=== PATIENT | female | born 1980 | race Caucasian/White ===

== ENCOUNTER 2024-10-23 14:11 | Outpatient (CLI) | payer OTHER, SELFPAY ==
--- NOTE | ~2024-10-23 | MM_ITS ---
EXAMINATION: MM screening samuel BI w john HISTORY: Screening TECHNIQUE: Craniocaudal and mediolateral oblique 3-D tomosynthesis images were obtained and synthetic 2-D images were generated. CAD analysis was submitted and interpreted. COMPARISON: Comparison to multiple prior studies sequentially, with oldest reviewed study dated 09/07. BREAST PARENCHYMAL COMPOSITION: Dense: The breasts are extremely dense, which lowers the sensitivity of mammography. FINDINGS: There is no evidence of suspicious mass, calcification, or architectural distortion to sugg est malignancy in either breast. There has been no suspicious interval change. IMPRESSION: 1. No mammographic evidence of malignancy. 2. Recommend routine screening mammography in one year. BI-RADS Category 1: Negative Reviewed, dictated and finalized at location A. RAL FOODS CLERK
== END 2024-10-23 14:12 | disposition home or self-care (01) ==
LOC: ANHIMG 14:13
PROVIDERS: PCP Internal Medicine; Visit Provider Nurse Practitioner Family
DX: Z12.31 Encounter for screening mammogram for malignant neoplasm of breast (principal)
CPT/HCPCS: 77063; 77067

== ENCOUNTER 2025-03-02 00:46 | Day surgery (SDC) | payer OTHER, SELFPAY ==
[2025-02-19 12:38] VITALS: BMI 26.6
--- OUTSIDE RECORDS SUMMARY | 2025-03-02 00:48 | XMS_ITS | Clinical Summary ---
Author Organization [facility] Address [address], [address] [address] Phone Care Team Providers Care Magnetometer Operator Name Role Phone Gab Go MD Primary Care Provider Ivana Barker MD Unavailable Otis August DO Unavailable [phone] Allergies No known active allergies Medications ibuprofen (MOTRIN) 400 MG Tablet Take 400 mg by mouth every 8 hours as needed. Active omeprazole (PRILOSEC) 40 MG CAPSULE DELAYED RELEASE TAKE ONE CAPSULE BY MOUTH EVERY DAY 30 Cap 1 09/25/2017 Active Family History Medical History Relation Name Comments Breast Cancer Paternal Grandmother Relation Name Status Comments Paternal Grandmother Social History Tobacco Use Types Packs/Day Years Used Date Smoking Tobacco: Every Day Cigarettes 2 25 Smokeless Tobacco: Never Tobacco Cessation:Ready to Q uit: No Alcohol Use Standard Drinks/Week Comments Yes 0 (1 standard drink = 0.6 oz pur e alcohol) 1 - 2 drinks per month Comments Unknown Sex and Gender Information Value Date Recorded Sex Assigned at Not on file Legal Sex Female 3:01 PM CDT Gender Identity Not on file Sexual Orientation Not on file Plan of Treatment Health Maintenance Due Date Last Done Comments Hepatitis C Virus (HCV) Screening 1978 TdaP Immunization 1978 Hepatitis B Immunization (1 of 3 - 19+ 3-dose series) 1997 Pap Smear 1999 Cervical Cancer Screening (CCS) 2008 HPV/Cotest 2008 Discussion re Starting/Frequ ency of Mammograms 2018 Colonoscopy 2023 Colorectal Cancer Screening 2023 Influenza Immunization (#1) 2024 SARS-COV-2 Immunization ( - season) 2024 Respiratory Syncytial Virus (RSV) Immunization (Adult) (1 - 1-dose 75+ series) 2053 Meningococcal Immunization (ACWY) Aged Out No longer eligible based on patient's age to complete this topic Pneumococcal Immunization Combined Aged Out No longer eligible based on patient's age to complete this topic Rotavirus Immunization Aged Out No lo nger eligible based on patient's age to complete this topic Insurance [address] Care Teams Magnetometer Operator Relationship Specialty Start Date End Date Gab Go MD PCP - General Internal Medicine 08/03/16 Ivana Barker MD [address] [place] [id number] Obstetrics & Gynecology 08/03/16 Otis August DO [address] [place] [id number] Gastroenterology 11/06/16
[2025-03-02 09:42] VITALS: BP 117/76; PULSE 94; RESP 16; TEMP 36.1; O2SAT 99; BMI 29.0
[2025-03-02] MEDS: LACTATED RINGERS 1,000 ML 150 ML IV CONT (09:52)
--- NOTE | 2025-03-02 10:00 | WPDANESEPPF ---
Anes - Initial Pre Proc Eval Procedure: Operation Date: 03/02/25 11:00 Proposed Procedures p Screening Colonoscopy - Ronnell Dolan MD Date/Time: 03/02/25 10:00 Surgeon: Ronnell Dolan MD Pre Op Diagnosis: neoplasm screening Patient Data Age: 44 Gender: F Height: 1.55 m Weight: 69.6 kg Last Vital Signs Temp 97 F L 03/02/25 09:42 Pulse 94 03/02/25 09:42 Resp 16 03/02/25 09:42 BP 117/76 03/02/25 09:42 Pulse Ox 99 03/02/25 09:42 O2 Del Method Room Air 03/02/25 09:42 Allergies Allergy/AdvReac Type Severity Reaction Status Date / Time No Known Allergies Allergy Verified 03/02/25 09:41 Home Medications ?Medication ?Instructions ?Recorded ?Confirmed ?Type omeprazole 20 mg tablet,delayed 20 mg PO DAILY 02/19/25 03/02/25 History release Patient hx anesthesia problems: none Family hx anesthesia problems: none Results Review: All pre-operative results and documents have been reviewed as part of the pre-operative evaluation. [facility] Past Medical History Medical History (Updated 06/11/24 @ 14:30 by Shaila Leonardo APRN) COPD (chronic obstructive pulmonary disease) Stomach ulcer Surgical History Surgical History H/O endoscopy H/O tubal ligation H/O: Family History Family History Mother Pancreatic cancer Father Alcoholic Grandparent Cerebrovascular accident Breast cancer Heart disease Social History Social History (Updated 06/11/24 @ 13:44 by Julianne Ontiveros CMA) Smoking packs per day: 2 Smoking cigarettes per day: 40.0 Smoking status: Current every day smoker Tobacco type: cigarettes Alcohol intake: current Alcohol use details: rare Substance use: current Substance use type: marijuana Other substance usage details: daily Living arrangements: with family Spiritual care concerns: No Anes - Eval Final PreProcedure Day of Procedure 03/02/25 10:00 Patient weight: normal Heart: regular rate and rhythm Lungs: clear to auscultation Airway: Mallampati scale class II Neurological: alert and oriented Last oral intake: >/= 8 hours ASA classification: III Emergent: no Anesthetic plan: proceed Anesthesia type and monitoring: general GIVS and standard monitoring Results Review: All pre-operative results and documents have been reviewed as part of the pre-operative evaluation. Informed Consent: The patient's anesthetic plan and its attendant risks and benefits were discussed with the patient/family/POA. Questions were solicited and answers provided to the satisfaction of the patient/family/POA.
--- NOTE | 2025-03-02 10:19 | P.HP_ITS ---
History of Present Illness History of Present Illness Consent: Risks, benefits, and alternatives have been discussed and questions answered. Patient agrees to proceed with procedure. Chief complaint: neoplasm screening Narrative: Coby Daugherty is a 44 year old female here for first screening colonoscopy Review of Systems Review of Systems: All systems reviewed & are unremarkable except as noted in HPI and below PMFSH Past Medical History Medical History (Updated 06/11/24 @ 14:30 by Shalia Leonardo APRN) COPD (chronic obstructive pulmonary disease) Stomach ulcer Surgical History Surgical History (Reviewed 06/11/24 @ 13:42 by Julianne Ontiveros [facility]) H/O endoscopy H/O tubal ligation H/O: Family History Family History Mother Pancreatic cancer Father Alcoholic Grandparent Cerebrovascular accident Breast cancer Heart disease Social History Social History (Updated 06/11/24 @ 13:44 by Julianne Ontiveros CMA) Smoking packs per day: 2 Smoking cigarettes per day: 40.0 Smoking status: Current every day smoker Tobacco type: cigarettes Alcohol intake: current Alcohol use details: rare Substance use: current Substance use type: marijuana Other substance usage details: daily Living arrangements: with family Spiritual care concerns: No Meds Home Medications and Allergies Home Medications ?Medication ?Instructions ?Recorded ?Confirmed ?Type omeprazole 20 mg tablet,delayed 20 mg PO DAILY 02/19/25 03/02/25 History release Allergies Allergy/AdvReac Type Severity Reaction Status Date / Time No Known Allergies Allergy Verified 03/02/25 09:41 Vital Signs Vital Signs - 24 hr 03/02/25 09:42 Temperature 97 F L Pulse Rate 94 Respiratory Rate 16 Blood Pressure 117/76 Pulse Oximetry 99 Oxygen Delivery Room Air Exam Const: General: comfortable and no acute distress HENMT: Face/Nose/Sinus: Normal nares present Eyes: General: appearance normal, both eyes and all related structures Neck: Neck: no JVD Resp: Auscultation: clear to auscultation bilaterally Cardio: Rate: regular rate Rhythm: regular rhythm GI: Inspection: non-distended GI Palp: Yes Soft to palpation Skin: General skin exam: normal color Neuro: General: gait normal Speech: normal speech Extrem: General: normal to inspection Psych: Mental Status: mental status grossly normal Assessment and Plan Assessment and plan (1) Colon cancer screening: Code(s): Z12.11 - Encounter for screening for malignant neoplasm of colon Status: Acute Assessment and Plan: colonoscopy
[2025-03-02 10:40] VITALS: BP 124/77; PULSE 81; RESP 25; O2SAT 99
[2025-03-02 10:50] VITALS: BP 115/64; PULSE 80; RESP 13; O2SAT 100
[2025-03-02 11:00] VITALS: BP 113/63; PULSE 79; RESP 15; O2SAT 100
== END 2025-03-02 11:07 | disposition home or self-care (01) ==
PROVIDERS: PCP Internal Medicine; Referring Provider Internal Medicine; Visit Provider Internal Medicine Gastroenterology
PROC: 0DJD8ZZ Inspection of Lower Intestinal Tract, Via Natural or Artificial Opening Endoscopic (ICD-10-PCS; CPT 45378; principal; 2025-03-02 11:00)
DX: Z12.11 Encounter for screening for malignant neoplasm of colon (principal); D12.2 Benign neoplasm of ascending colon; D12.3 Benign neoplasm of transverse colon; K64.8 Other hemorrhoids; J44.9 Chronic obstructive pulmonary disease, unspecified; F17.210 Nicotine dependence, cigarettes, uncomplicated; F12.90 Cannabis use, unspecified, uncomplicated; Z98.890 Other specified postprocedural states; Z98.51 Tubal ligation status; Z87.11 Personal history of peptic ulcer disease; Z80.3 Family history of malignant neoplasm of breast; Z80.0 Family history of malignant neoplasm of digestive organs; Z82.49 Family history of ischemic heart disease and other diseases of the circulatory system
CPT/HCPCS: 45385; 88305; J2003; J2704; J7120

== ENCOUNTER 2025-08-20 11:26 | Outpatient (CLI) | payer OTHER, SELFPAY ==
--- NOTE | ~2025-08-20 | US_ITS ---
EXAMINATION: US thyroid DATE: 08/20/2025 12:08 INDICATION: Goiter TECHNIQUE: Multiple ultrasound images of the thyroid were obtained. COMPARISON: None. FINDINGS: The right thyroid lobe measures 5.1 x 2.1 x 2.0 cm. The left thyroid lobe measures 5.0 x 1.9 x 2.2 Isthmus: 5.7 mm Multiple nodules are seen. 9 x 6 x 7 mm T4 nodule in the midpole of the right lobe. 1.2 x 1.1 x 0.5 cm T2 nodule right lobe. IMPRESSION: 1. Borderline enlarged thyroid with thickened isthmus may represent mild early goiter. 2. Multinodular appearance of the thyroid. The subcentimeter size T4 nodule is too small for reliable FNA or tissue sampling. Follow up surveillance ultrasound in 12 months recommended. Reviewed, dictated and finalized at location A. OFFICE AGENT IMPRESSION: 1. Borderline enlarged thyroid with thickened isthmus may represent mild early goiter. 2. Multinodular appearance of the thyroid. The subcentimeter size T4 nodule is too small for reliable FNA or tissue sampling. Follow up surveillance ultrasoun d in 12 months recommended.
== END 2025-08-20 11:27 | disposition home or self-care (01) ==
PROVIDERS: PCP Internal Medicine; Visit Provider Nurse Practitioner Family
DX: E04.2 Nontoxic multinodular goiter (principal)
CPT/HCPCS: 76536

== ENCOUNTER 2025-08-23 09:46 | Outpatient (CLI) | payer OTHER, SELFPAY ==
[2025-08-23 10:58] LABS: Free T4 Free Thyroxine 1.05 ng/dL (0.78-2.19)
[2025-08-23 11:11] LABS: Thyroid Stimulating Hormone 0.658 uIU/mL (0.465-4.680)
== END 2025-08-23 09:47 | disposition home or self-care (01) ==
LOC: ANHLAB 09:47
PROVIDERS: PCP Internal Medicine; Visit Provider Nurse Practitioner Family
DX: E04.9 Nontoxic goiter, unspecified (principal)
CPT/HCPCS: 36415; 84439; 84443